=== PATIENT | female | born 1955 | race Caucasian/White ===

== ENCOUNTER → 2019-04-10 13:39 | Outpatient (CLI) | payer MEDICARE, OTHER, SELFPAY ==
--- NOTE | ~2019-04-10 | MM_ITS ---
EXAMINATION: MM screening michael BI w brandy HISTORY: Screening mammogram TECHNIQUE: Craniocaudal and mediolateral oblique 3-D tomosynthesis images were obtained and synthetic 2-D images were generated. CAD analysis was submitted and interpreted. COMPARISON: 04/01/2018 bilateral digital screening mammogram To diagnostic left digital mammogram and limited left breast ultrasound To, 02/28/2016, 02/22/2015 bilateral digital screening mammogram examinations BREAST PARENCHYMAL COMPOSITION: The breasts are heterogeneously dense, which may obscure small masses . FINDINGS: There is no evidence of suspicious mass, calcification, or architectural distortion to sugg est malignancy in either breast. There has been no suspicious interval change. IMPRESSION: 1. No mammographic evidence of malignancy. 2. Recommend routine screening mammography in one year. BI-RADS Category 1: Negative Reviewed, dictated and finalized at location A. OM LOADER
== END ==
PROVIDERS: Visit Provider Nurse Practitioner Obstetrics & Gynecology
DX: Z12.31 Encounter for screening mammogram for malignant neoplasm of breast (principal)
CPT/HCPCS: 77063; 77067

== ENCOUNTER → 2019-04-18 12:59 | Outpatient (CLI) | payer MEDICARE, OTHER, SELFPAY ==
--- NOTE | ~2019-04-18 | DEXA_ITS ---
Bone Density Report Name: Yvonne Kumar Age: 64 Sex: Female Ethnicity: White Date of : 1955 Indication: postmenopausal; screening for osteoporosis; Referring Provider: Prabhakar, Neida Velázquez Study: Bone densitometry was performed. Exam Date: April 18, 2019 Accession number: [id number] Bone Density: Region BMD T-score Z-score Classification AP Spine (L1-L4) 1.001 -0.4 1.3 Normal Femoral Neck (Left) 0.755 -0.8 0.7 Normal Total Hip (Left) 0.925 -0.1 1.1 Normal Femoral Neck (Right) 0.734 -1.0 0.5 Normal Total Hip (Right) 0.932 -0.1 1.1 Normal Total Hip Mean 0.929 -0.1 1.1 Normal World Health Organization criteria for BMD impression classify patients as: Normal (T-score at or above -1.0), Osteopenia (T-score between -1.0 and -2.5), or Osteoporosis (T-score at or below -2.5). 10-year Fracture Risk: FRAX not reported because: All T-scores for Spine Total, Hip Total, Femoral Neck at or above -1.0 Previous Exams: Region Exam Age BMD T-score BMD Change BMD Change Date g/cm2 vs Baseline vs Previous AP Spine(L1-L4) 04/18/2019 64 1.001 -0.4 0.003 0.003 03/12/2017 62 0.997 -0.5 Total Hip(Left) 04/18/2019 64 0.925 -0.1 0.008 0.008 03/12/2017 62 0.917 -0.2 Total Hip(Right) 04/18/2019 64 0.932 -0.1 0.050* 0.050* 03/12/2017 62 0.882 -0.5 *Denotes significance at 95% confidence level, LSC for AP Spine = 0.022 g/cm2, LSC for Total Hip = 0.027 g/cm2 Clinical Information Provided by Patient: Patient maximum height was 65.3 Menopause Age: 54 Drinks caffeinated beverages Onset of menses at age 15 Number of children 1 Impression: The patient has normal bone mass. No significant bone loss was observed. Discussion: BONE DENSITY IS ABOVE THE MINIMUM DESIRABLE LEVEL AT ALL SKELETAL SITES TESTED. This patient?s bone mineral density is above the minimum desirable level (T-score -1.0 or better) at all sites measured. The patient should follow a healthful lifestyle (good nutrition with adequate calcium and vitamin D, and appropriate weight-bearing exercise). Follow-Up: Consider repeating this study in 5 years or sooner if there is some new clinical indication. Reported by: [facility] on 04/18/2019 1:14:00 PM. Reviewed, dictated and finalized at location ANichol AGUIRRE
== END ==
PROVIDERS: PCP Internal Medicine; Visit Provider Nurse Practitioner Obstetrics & Gynecology
DX: Z78.0 Asymptomatic menopausal state (principal)
CPT/HCPCS: 77080

== ENCOUNTER 2019-12-08 11:56 | Outpatient (CLI) | payer MEDICARE, OTHER, SELFPAY ==
--- NOTE | 2019-12-08 12:52 | ECG_ITS ---
Measurements Intervals [place] Rate: 80 P: 63 RI: 205 QRS: 26 QRSD: 95 T: 42 QT: 354 QTc: 410 Interpretive Statements SINUS RHYTHM DELAYED PRECORDIAL R/S TRANSITION BASELINE ARTIFACT- I, II, III, AVR, AVL, AVF, V6 BORDERLINE ECG Electronically Signed On 12-08-2019 13:44:21 CDT by Constantino Forbes D.O.
[2019-12-08 13:18] LABS: Basophils Percent Auto 0.3 % (0.2-1.2); Eosinophils Absolute Auto 0.2 K/mm3 (0-0.3); Eosinophils Percent Auto 2.9 % (0-4.4); Hematocrit 47.5 % (37.0-47.0); Hemoglobin 15.6 g/dL (12.0-15.0); Immature Granulocyte Absolute 0.02 K/mm3 (0.00-0.031); Immature Granulocyte Percent A 0.3 % (0-0.5); Lymphocytes Absolute Auto 1.86 K/mm3 (0.9-3.2); Lymphocytes Percent Auto 26.6 % (18.3-44.2); Mean Corpuscular HGB Conc 32.8 g/dl (32-36); Mean Corpuscular Hemoglobin 30.2 pg (26-34); Mean Corpuscular Volume 92.1 fl (80-100); Mean Platelet Volume 8.8 fl (7.4-10.4); Monocytes Absolute Auto 0.6 K/mm3 (0.1-0.6); Monocytes Percent Auto 8.4 % (2.6-8.5); Neutrophils Absolute Auto 4.3 K/mm3 (1.3-6.7); Neutrophils Percent Auto 61.5 % (45.5-73.1); Platelet Count Result 307 k/mm3 (150-375); Red Blood Count 5.16 M/mm3 (4.2-5.4); Red Cell Distribution Width 12.8 % (11.5-14.5)
[2019-12-08 13:21] LABS: Add Urine Microscopic? YES; Appearance Urine Clear (Clear); Bacteria Urine Trace /hpf; Bilirubin Urine Negative (Negative); Blood Urine Negative (Negative); Color Urine Yellow (Yellow); Glucose Urine UA Negative (Negative); Ketones Urine Negative (Negative); Leukocyte Esterase Ur Negative LEU/UL (Negative); Mucus Urine Rare /lpf; Nitrate Urine Negative (Negative); Protein Urine Negative (Negative); RBC Urine 0-2 /hpf (0-2); Specific Grav Ur 1.013 (1.001-1.035); Squamous Epithelial Cell Urine Many /hpf (Few); Urobilinogen Urine Negative mg/dL (<2.0); WBC Urine 0-3 /hpf
[2019-12-08 13:27] LABS: Hemoglobin A1C 5.1 % (<5.7)
[2019-12-08 13:28] LABS: Partial Thromboplastin Time 31.5 SECONDS (22.3-36.8); Urine Cotinine NEGATIVE
[2019-12-08 13:30] LABS: Albumin Level 4.1 g/dL (3.5-5.1); Anion Gap 6 mmol/L (8-16); Blood Urea Nitrogen 11 mg/dL (7-17); Calcium 9.5 mg/dL (8.4-10.2); Carbon Dioxide 32 mmol/L (22-30); Chloride 103 mmol/L (98-107); Estimated Glomerular Filt Rate > 60; Glucose 93 mg/dL (65-105); Potassium 3.8 mmol/L (3.4-5.0); Sodium 141 mmol/L (137-145)
== END 2019-12-08 11:57 | disposition home or self-care (01) ==
LOC: ANHSURGERY 12:01
PROVIDERS: PCP Internal Medicine; Visit Provider Orthopaedic Surgery
DX: M17.12 Unilateral primary osteoarthritis, left knee (principal); Z01.818 Encounter for other preprocedural examination; R94.31 Abnormal electrocardiogram [ECG] [EKG]
CPT/HCPCS: 80048; 80307; 81001; 82040; 83036; 85025; 85610; 85730; 86850; 86900; 86901; 87081; 93005

== ENCOUNTER 2019-12-16 01:02 | Outpatient (CLI) | payer MEDICARE, OTHER, SELFPAY ==
[2019-12-16 18:04] LABS: SARS-CoV-2 RNA PCR Negative
== END 2019-12-16 01:03 | disposition home or self-care (01) ==
LOC: ANHCOVIDDT 01:02
PROVIDERS: PCP Internal Medicine; Visit Provider Orthopaedic Surgery
DX: Z01.812 Encounter for preprocedural laboratory examination (principal); Z11.59 Encounter for screening for other viral diseases
CPT/HCPCS: 87635; C9803; U0003

== ENCOUNTER 2019-12-20 17:37 | Observation (INO) | payer MEDICARE, OTHER, SELFPAY ==
[2019-12-08 12:18] VITALS: BP 143/79; PULSE 75; RESP 16; TEMP 36.2; O2SAT 97; BMI 31.8
[2019-12-19] VITALS (13 sets, daily range): BP systolic 97–149; BP diastolic 48–79; PULSE 84–109; RESP 12–20; TEMP 36.3–36.7; O2SAT 93–100; BMI 31.5
--- NOTE | 2019-12-19 10:16 | WPDANESEPPF ---
Anes - Initial Pre Proc Eval Procedure: Operation Date: 12/19/19 12:00 Proposed Procedures p Left Total Knee Arthroplasty - Jah Fox MD Date/Time: 12/19/19 10:16 Surgeon: Jah Fox MD Pre Op Diagnosis: left knee DJD Patient Data Age: 64 Gender: F Height: 5 ft 6 in Weight: 88 kg Last Vital Signs Temp 36.2 C L 12/08/19 12:18 Pulse 75 12/08/19 12:18 Resp 16 12/08/19 12:18 BP 143/79 H 12/08/19 12:18 Pulse Ox 97 12/08/19 12:18 Allergies Allergy/AdvReac Type Severity Reaction Status Date / Time Penicillins Allergy Mild Rash Verified 12/19/19 10:10 Home Medications Medication Instructions Recorded Confirmed Type multivitamin 1 tablet PO DAILY 02/17/19 12/19/19 History fluticasone propionate 50 2 spray NASAL DAILY PRN #47.4 ml 06/18/19 12/19/19 Rx mcg/actuation nasal spray,suspension coenzyme Q10 75 mg capsule 75 mg PO QPM 11/07/19 12/19/19 History unsdcwz-cqjhsdtnvqhmq-hjhblygy 2 tablet PO Q4-6H PRN 12/08/19 12/19/19 History [Excedrin Migraine] citalopram 10 mg PO QAM 12/08/19 12/19/19 History cyanocobalamin (vitamin B-12) 1,000 mcg PO DAILY 12/08/19 12/19/19 History [Vitamin B-12] diclofenac sodium [Voltaren 2 g TOPICAL QID PRN 12/08/19 12/19/19 History Arthritis Pain] ezetimibe-simvastatin 1 tablet PO QPM 12/08/19 12/19/19 History Patient hx anesthesia problems: other (slow to awaken) Family hx anesthesia problems: none PMFSH Past Medical History Medical History Arthritis Depression Dizziness Headache Pure hypercholesterolemia Seasonal allergies Vision abnormalities Surgical History Surgical History History of right knee joint replacement Family History Family History Sibling Family history of scoliosis Father Patient's father is Other Arthritis Heart disease Kidney disease Social History Social History Smoking status: Never smoker Second hand tobacco smoke exposure: No Alcohol intake: never Substance use: never Living arrangements: alone Spiritual care concerns: No Anes - Eval Final PreProcedure Day of Procedure 12/19/19 10:16 Patient weight: obese Heart: regular rate and rhythm Lungs: clear to auscultation Airway: Mallampati scale class II Neurological: alert and oriented Last oral intake: >/= 8 hours ASA classification: III Emergent: no Anesthetic plan: proceed Anesthesia type and monitoring: general LMA and standard monitoring Informed Consent: The patient's anesthetic plan and its attendant risks and benefits were discussed with the patient/family/POA. Questions were solicited and answers provided to the satisfaction of the patient/family/POA.
[2019-12-19] MEDS: LACTATED RINGERS 1,000 ML 30 ML IV CONT ×2 (10:25→14:33)
[2019-12-19] MEDS: KETOROLAC 15 MG/ML VIAL (*BKC) IV PUSH (10:25)
[2019-12-19] MEDS: ACETAMINOPHEN 500 MG TABLET 1000 MG PO (10:30)
[2019-12-19] MEDS: TRANEXAMIC ACID 1,000MG/ISO100 1,000 MG/100 ML BAG 200 MG IVPB (10:30)
--- NOTE | 2019-12-19 11:39 | WPDHPUPDATE1 ---
History and Physical Update Update Date/Time: 12/19/19 11:39 History and Physical has been reviewed, including an updated exam of the patient. There are NO changes in the patient's condition. Risks, benefits, and alternatives have been discussed and questions answered. Patient agrees to proceed with procedure.
--- NOTE | 2019-12-19 11:47 | WPDANESPNB ---
Anes - Peripheral Nerve Block Date/Time: 12/19/19 11:47 I have discussed with the patient/family/POA the placement of a peripheral nerve block for post-operative pain management, including associated risks, benefits, complications, and side effects. Alternative methods of post-operative analgesia were detailed. Questions were solicited and answers provided to the satisfaction of the patient/family/POA. Time-Out: A pre-procedural Time-Out was completed immediately before starting the procedure and confirmed: Patient Identification, Site, Procedure, Patient Position and the Availability of Requisite Equipment. Clinical Indications: Acute post-operative pain management requested by the operative surgeon. Nerve Block Insertion Note Anes-nerve block: femoral left Patient position: supine Skin prep: chlorhexidine Needle: 22 gauge, stimulating, insulated echogenic needle. Needle length: 50 mm Technique: nerve stimulation lost at (mA) (.30) Technique comment: mid 2mg fent 100mcg Injectate: dexamethasone (mg) (4) and bupivacaine 0.25% with epi 5 mcg/ml (30ml) Observations: tolerated well Complications: none Procedure start time:: 1140 Procedure end time:: 1145
[2019-12-19] MEDS: ceFAZolin 2 GM/D5W 50 ML 2 GM/50 ML BAG IVPB ×2 (11:50→20:32)
[2019-12-19] MEDS: GENTAMICIN BONE CEMENT REFOBACIN 1 EACH TOPICAL (13:04)
--- NOTE | 2019-12-19 14:46 | PM.PROC ---
Procedure Note - Detailed Date of procedure: 12/19/19 Pre-op diagnosis: left knee DJD Post-op diagnosis: same Procedure performed: L TKA Description of procedure: THE LEFT KNEE WAS PREPPED AND DRAPED IN THE STERILE FASHION. A MIDLINE SKIN INCISION WAS MADE. A MEDIAL PARAPATELLAR ARTHROTOMY WAS MADE. THE PATELLA WAS EVERTED. THERE WAS TRICOMPARTMENT DJD. THERE WAS MINIMAL PATELLA DJD. AN INTRAMEDULLARY JAMAL WAS PLACED IN THE FEMUR. A DISTAL FEMORAL CUT WAS MADE IN 5 DEGREES OF VALGUS REMOVING APPROXIMATELY 9 MM OF BONE FROM THE DISTAL FEMUR. THE FEMUR WAS SIZED TO 70. A 62.5 FEMORAL CUTTING BLOCK WAS PLACED IN 3 DEGREES OF EXTERNAL ROTATION AND IN ALIGNMENT WITH LOS'S LINE AND THE TRANSEPICONDYLAR AXIS. ANTERIOR POSTERIOR AND CHAMFER CUTS WERE MADE. THE CUTS WERE EXCELLENT. NEXT AN INTRAMEDULLARY CUTTING GUIDE WAS PLACED IN THE TIBIA. A TRANS TIBIAL CUT WAS MADE ALONG THE LONG AXIS OF THE TIBIA. APPROXIMATELY 10 MM OF BONE WAS REMOVED FROM THE HIGH SIDE OF THE TIBIA. THE TIBIA WAS THEN PLANED TO A SMOOTH SURFACE. POSTERIOR FEMORAL OSTEOPHYTES WERE REMOVED FROM THE FEMORAL CONDYLES. A LARGE OSTEOPHYTE WAS REMOVED FROM POSTERIOR MEDIAL COMPARTMENT AND THERE WS SIGNIFICANT REDUNDANCY. A 71 TIBIAL TRIAL WAS PLACED IN ALIGNMENT WITH THE 1/3 MEDIAL ASPECT OF THE TIBIAL TUBERCLE. THEN A 62.5 FEMORAL TRIAL COMPONENT WAS PLACED. BOTH HAD EXCELLENT FITS. VARIOUS POLY TRIALS WERE USED TO STABILIZE THE KNEE JOINT AND EVENTUALLY AN 18 MM A.S. POLYETHYLENE TRIAL COMPONENT WAS PLACED. THE KNEE WAS TAKEN THROUGH A RANGE OF MOTION. THE KNEE CAME OUT TO FULL EXTENSION. THERE WAS NO ABNORMAL TILT TO THE PATELLA. THERE WAS GOOD A/P AND VARUS/VALGUS STABILITY. THERE WAS NO EXCESSIVE ROLL BACK WITH FLEXION. THE TRIAL COMPONENTS WERE REMOVED. THEN A 62.5 FEMORAL COMPONENT AND 71 TIBIAL COMPONENT WITH A 118 A.S. POLYETHYLENE COMPONENT WERE CEMENTED INTO PLACE. ONCE THE CEMENT WAS HARD THE KNEE WAS TAKEN THROUGH A ROM AGAIN AND FOUND TO BE STABLE WITH NO PATELLA TILT NO EXCESSIVE ROLL BACK WITH FLEXION AND GOOD STABILITY WITH COMPLETE AND FULL EXTENSION. THE KNEE WAS IRRIGATED WITH STERILE BETADINE AND WATER FOR ABOUT 3 MINUTES. THE BLEEDERS WERE CAUTERIZED. THE ARTHROTOMY WAS REPAIRED WITH NUMBER 1 VICRYL. THE SUB CUTANEOUS LAYER WITH 2-0 VICRYL AND THE SKIN WITH RENITA. THE WOUND WAS WASHED AND A STERILE DRESSING WAS APPLIED. PATIENT WAS EXTUBATED. Anesthesia: GETA Surgeon: Jah Fox MD Estimated blood loss (mL): 100 Complications: No immediate complications Condition: stable Disposition: PACU
[2019-12-19] MEDS: fentaNYL CITRATE INJ (*CRX) 100 MCG/2 ML VIAL 25 MCG IV PUSH ×4 (15:11→15:40)
--- NOTE | 2019-12-19 15:42 | SUR.PHASEI ---
[id number] sbar faxed floor notified
--- NOTE | 2019-12-19 16:10 | ADMGEN ---
This patient, Yvonne Kumar, was admitted to Medical Room 247-. Patient/family oriented to hospital policies and general routines including ID bracelet, bed and alarms, visiting hours, pain management, procedures, bathroom and other care routines, personal items, smoking policy, room service/diet, and visiting hours. Information on how to activate the Rapid Response Team has been discussed. Patient/Family are encouraged to report perceived risks to care and to ask questions if they do not understand what they are told or what they should do.
[2019-12-19] MEDS: oxyCODONE HCL (*CRX) 5 MG TAB IR 10 MG PO ×2 (17:00→20:57)
[2019-12-19] MEDS: DOCUSATE SODIUM 100 MG CAPSULE PO (17:02)
[2019-12-19] MEDS: CELECOXIB 200 MG CAPSULE PO (17:29)
[2019-12-19] MEDS: SIMVASTATIN 10 MG TABLET PO (17:30)
[2019-12-19] MEDS: EZETIMIBE 10 MG TABLET PO (17:30)
[2019-12-20] VITALS (8 sets, daily range): BP systolic 102–144; BP diastolic 49–69; PULSE 82–100; RESP 16–18; TEMP 36.4–37.2; O2SAT 96–100
--- NOTE | ~2019-12-20 | XR_ITS ---
EXAMINATION: XR knee LT 2V DATE: 12/19/2019 14:45 INDICATION: Total left knee arthroplasty. Postop. TECHNIQUE: 2 views of left knee were obtained. COMPARISON: Left knee radiographs 11/06/2019 FINDINGS: There is a total left knee arthroplasty without patellar resurfacing in near-anatomic align ment. No fracture. There is gas in the knee joint and soft tissues, consistent with recent surgery. A nterior skin karissa are noted. IMPRESSION: 1. Total left knee arthroplasty in near-anatomic alignment. Reviewed, dictated and finalized at location B. EROOM ATTENDANT
[2019-12-20] MEDS: oxyCODONE HCL (*CRX) 5 MG TAB IR 10 MG PO ×4 (03:41→23:00)
[2019-12-20] MEDS: ONDANSETRON INJ 4 MG/2 ML VIAL IV PUSH ×2 (03:41→10:30)
[2019-12-20] MEDS: ceFAZolin 2 GM/D5W 50 ML 2 GM/50 ML BAG IVPB ×2 (03:45→11:17)
[2019-12-20 05:28] LABS: Basophils Percent Auto 0.1 % (0.2-1.2); Hematocrit 42.5 % (37.0-47.0); Hemoglobin 13.8 g/dL (12.0-15.0); Immature Granulocyte Absolute 0.08 K/mm3 (0.00-0.031); Immature Granulocyte Percent A 0.5 % (0-0.5); Lymphocytes Absolute Auto 0.99 K/mm3 (0.9-3.2); Lymphocytes Percent Auto 6.2 % (18.3-44.2); Mean Corpuscular HGB Conc 32.5 g/dl (32-36); Mean Corpuscular Hemoglobin 29.9 pg (26-34); Mean Corpuscular Volume 92.2 fl (80-100); Mean Platelet Volume 9.1 fl (7.4-10.4); Monocytes Absolute Auto 1.5 K/mm3 (0.1-0.6); Monocytes Percent Auto 9.1 % (2.6-8.5); Neutrophils Absolute Auto 13.5 K/mm3 (1.3-6.7); Neutrophils Percent Auto 84.1 % (45.5-73.1); Platelet Count Result 306 k/mm3 (150-375); Red Blood Count 4.61 M/mm3 (4.2-5.4); Red Cell Distribution Width 12.8 % (11.5-14.5)
[2019-12-20 05:40] LABS: Anion Gap 5 mmol/L (8-16); Blood Urea Nitrogen 13 mg/dL (7-17); Calcium 8.6 mg/dL (8.4-10.2); Carbon Dioxide 30 mmol/L (22-30); Chloride 105 mmol/L (98-107); Estimated CRCL calculation 89 ml/min; Estimated Glomerular Filt Rate > 60; Glucose 126 mg/dL (65-105); Potassium 4.1 mmol/L (3.4-5.0); Sodium 140 mmol/L (137-145)
--- NOTE | 2019-12-20 07:49 | WPDANESPN ---
Anes - Prog Note Post-Op Date/Time: 12/20/19 07:49 Cardiovascular status: normal Respiratory status: normal Airway patency: baseline Mental status: baseline Post-Op hydration status: normal Vital Signs: Last Vital Signs Temp 37.2 C 12/20/19 05:42 Pulse 89 12/20/19 05:42 Resp 18 12/20/19 05:42 BP 144/69 H 12/20/19 05:42 Pulse Ox 100 12/20/19 05:42 Pain Score (VAS): 3 I/O: Intake & Output 12/19/19 12/19/19 12/20/19 15:59 23:59 07:59 Intake Total 550 440 290 Output Total 250 Balance 550 190 290 Laboratory Tests 12/20/19 05:04 12/20/19 05:04 12/20/19 12/20/19 05:04 05:04 WBC 16.0 H RBC 4.61 Hgb 13.8 Hct 42.5 MCV 92.2 MCH 29.9 MCHC 32.5 RDW 12.8 Plt Count 306 MPV 9.1 Immature Gran % (Auto) 0.5 Neut % (Auto) 84.1 H Lymph % (Auto) 6.2 L [place] % (Auto) 9.1 H Eos % (Auto) 0.0 Baso % (Auto) 0.1 L Lymph # (Auto) 0.99 [place] # (Auto) 1.5 H Eos # (Auto) 0.0 Baso # (Auto) 0.0 Abs Immat Gran (auto) 0.08 H Absolute Neuts (auto) 13.5 H Absolute Nucleated RBC 0.0 Nucleated RBC % 0.0 Sodium 140 Potassium 4.1 Chloride 105 Carbon Dioxide 30 Anion Gap 5 L BUN 13 Creatinine 0.60 L Estim Creat Clear Calc 89 Estimated GFR > 60 Glucose 126 H Calcium 8.6 Post-procedural complaints: none Patient Feedback: Patient satisfied with anesthetic care.
[2019-12-20] MEDS: DOCUSATE SODIUM 100 MG CAPSULE PO ×2 (09:09→16:19)
[2019-12-20] MEDS: CITALOPRAM HYDROBROMIDE 10 MG TABLET PO (09:09)
[2019-12-20] MEDS: ASPIRIN 325 MG ENTERIC TABLET 650 MG PO (09:09)
[2019-12-20] MEDS: CELECOXIB 200 MG CAPSULE PO ×2 (09:09→16:19)
--- NOTE | 2019-12-20 12:08 | PCOTNOTE ---
On 12/20/19, the student, Martha Griggs, provided care and completed [facility] documentation on this patient. I have reviewed the student's documentation and agree with the findings.
--- NOTE | 2019-12-20 16:24 | PM.PNORT ---
Progress Note: A&P Additional Plan POD 1 DOING WELL AND GETTING UP AND WALKING. BLOCK IS STILL ACTIVE. ANTICIPATE DC IN AM Subjective Subjective Date/Time Seen: 12/20/19 16:24 Post Op day: 1 Principal diagnosis: POD 1 DOING WELL. NO CALF PAIN Exam Extrem: Other: VSS AFEBRILE DRESSING DRY NV INTACT NEG HOMANS SIGN Objective Data Vital Signs Vital Signs: Vital Signs - 24 hr 12/19/19 16:30 12/19/19 17:00 12/19/19 18:00 Temperature 36.6 C 36.6 C 36.7 C Pulse Rate 96 99 96 Respiratory Rate 16 16 16 Blood Pressure 127/66 137/68 132/65 Pulse Oximetry 95 96 97 12/19/19 21:42 12/20/19 01:42 12/20/19 05:42 Temperature 36.6 C 36.8 C 37.2 C Pulse Rate 107 H 100 89 Respiratory Rate 20 18 18 Blood Pressure 127/61 109/57 L 144/69 H Pulse Oximetry 98 96 100 12/20/19 09:09 12/20/19 09:42 12/20/19 13:42 Temperature 36.4 C 36.4 C Pulse Rate 82 87 Respiratory Rate 18 16 16 Blood Pressure 108/54 L 102/56 L Pulse Oximetry 99 99 100 Intake/Output Intake/Output: Intake & Output 12/17/19 12/18/19 12/19/19 12/20/19 23:59 23:59 23:59 23:59 Intake Total 990 770 Output Total 250 Balance 740 770 Meds/Results Medications: Active Medications Generic Name Dose Route Start Last Admin Trade Name Freq PRN Reason Stop Dose Admin Acetaminophen 1,000 mg 12/19/19 15:57 Acetaminophen 500 Mg Tablet PO Q6H PRN Pain Rated 1-3 Aspirin 650 mg 12/20/19 09:00 12/20/19 09:09 Aspirin 325 Mg Enteric Tablet PO 650 mg DAILY RITO Administration Celecoxib 200 mg 12/19/19 17:00 12/20/19 16:19 Celecoxib 200 Mg Capsule PO 200 mg BIDWM RITO Administration Citalopram Hydrobromide 10 mg 12/20/19 09:00 12/20/19 09:09 Citalopram Hydrobromide 10 Mg Tablet PO 10 mg QAM RITO Administration Diazepam 5 mg 12/19/19 15:57 Diazepam (*Crx) 5 Mg Tablet PO Q8H PRN Spasms Diphenhydramine HCl 25 mg 12/19/19 15:57 Diphenhydramine Hcl Inj 50 Mg/Ml Vial IV PUSH Q6H PRN Itching Docusate Sodium 100 mg 12/19/19 17:00 12/20/19 16:19 Docusate Sodium 100 Mg Capsule PO 100 mg BID RITO Administration Ezetimibe 10 mg 12/19/19 18:00 12/19/19 17:30 Ezetimibe 10 Mg Tablet PO 01/18/20 18:01 10 mg QPM RITO Administration Naloxone HCl 0.1 mg 12/19/19 15:57 Naloxone Hcl 0.4 Mg/Ml Vial IV PUSH Q2M PRN Opiate Reversal Ondansetron HCl 4 mg 12/19/19 15:57 12/20/19 10:30 Ondansetron Inj 4 Mg/2 Ml Vial IV PUSH 4 mg Q4H PRN Administration Nausea And Vomiting Oxycodone HCl 10 mg 12/19/19 15:57 12/20/19 16:19 Oxycodone Hcl (*Crx) 5 Mg Tab Ir PO 10 mg Q4H PRN Administration Pain Rated 7-10 Oxycodone/Acetaminophen 1 tablet 12/19/19 15:57 Oxycodone/Acetaminophen (*Crx) 5-325 Mg Tablet PO Q4H PRN Pain Rated 4-6 Simvastatin 10 mg 12/19/19 18:00 12/19/19 17:30 Simvastatin 10 Mg Tablet PO 01/18/20 18:01 10 mg QPM RITO Administration Radiology Results: ITS Impressions Knee X-Ray 12/19/19 14:48 IMPRESSION: 1. Total left knee arthroplasty in near-anatomic alignment. Labs Labs: Laboratory Results - last 24 hr 12/20/19 12/20/19 05:04 05:04 WBC 16.0 H RBC 4.61 Hgb 13.8 Hct 42.5 MCV 92.2 MCH 29.9 MCHC 32.5 RDW 12.8 Plt Count 306 MPV 9.1 Immature Gran % (Auto) 0.5 Neut % (Auto) 84.1 H Lymph % (Auto) 6.2 L [place] % (Auto) 9.1 H Eos % (Auto) 0.0 Baso % (Auto) 0.1 L Lymph # (Auto) 0.99 [place] # (Auto) 1.5 H Eos # (Auto) 0.0 Baso # (Auto) 0.0 Abs Immat Gran (auto) 0.08 H Absolute Neuts (auto) 13.5 H Absolute Nucleated RBC 0.0 Nucleated RBC % 0.0 Sodium 140 Potassium 4.1 Chloride 105 Carbon Dioxide 30 Anion Gap 5 L BUN 13 Creatinine 0.60 L Estim Creat Clear Calc 89 Estimated GFR > 60 Glucose 126 H Calcium 8.6
[2019-12-20] MEDS: EZETIMIBE 10 MG TABLET PO (17:46)
[2019-12-20] MEDS: SIMVASTATIN 10 MG TABLET PO (17:46)
[2019-12-21 02:00] VITALS: BP 120/54; PULSE 84; RESP 18; TEMP 36.4; O2SAT 99
[2019-12-21] MEDS: oxyCODONE HCL (*CRX) 5 MG TAB IR 10 MG PO ×2 (04:15→09:39)
[2019-12-21 06:00] VITALS: BP 117/52; PULSE 97; RESP 16; TEMP 36.6; O2SAT 95
--- NOTE | 2019-12-21 09:16 | PM.PNORT ---
Progress Note: A&P Assessment and Plan (1) Total knee replacement status: Qualifiers: Laterality: left Qualified Code(s): Z96.652 - Presence of left artificial knee joint Code(s): Z96.659 - Presence of unspecified artificial knee joint Status: Acute Assessment and Plan: POD #2: Left TKA Continue PT/OT. WBAT. Walker. High Fall Risk. Continue pain control. Ice. DVT prophylaxis. SCDs. Incentive spirometry. Begin bowel regimen. Dispo: Home with Home Health likely today pending progress with PT/OT. Subjective Subjective Date/Time Seen: 12/21/19 09:16 No new complaints. Feeling well. Pain well controlled. Intermittent nausea. No BM since surgery. Review of Systems Review of Systems: All systems reviewed & are unremarkable except as noted in HPI and below Constitutional: Constitutional: Denies fever(s) and Denies headache(s) ENT: Denies headache(s) Cardiovascular: Cardiovascular: Denies chest pain, Denies diaphoresis, Denies palpitations and Denies dyspnea Respiratory: Respiratory: Denies dyspnea Gastrointestinal: Gastrointestinal: Denies abdominal pain, Denies constipation, Denies nausea and Denies vomiting Genitourinary: Genitourinary: Reports nocturia and Denies dysuria Musculoskeletal: Musculoskeletal: Reports arthralgias (Left Knee ) and Reports joint swelling (Left Knee ) Neurologic: Denies headache(s) Endocrine: Endocrine: Denies palpitations Exam Const: General: comfortable and no acute distress Resp: Effort & Inspection: normal respiratory effort Cardio: Rate: regular rate Rhythm: regular rhythm GI: GI Palp: Yes Soft to palpation, No Tenderness to palpation present (GI) and No Guarding due to palpation present (GI) Skin: Wounds: wounds noted Other: Incision c/d/i. No surrounding redness/warmth. No hematoma. Mild ecchymosis. No wound dehiscence Neuro: Cognition (Neuro): normal cognition Other: NV intact aside from block. Moves toes. Sensation intact to light touch. +ankle dorsiflexion/plantarflexion. Extrem: Right upper extremity: normal to inspection, full ROM and normal capillary refill Left upper extremity: normal to inspection, full ROM and normal capillary refill Right lower extremity: normal to inspection, full ROM and knee Details: normal to inspection and normal ROM; no tenderness and no swelling Left lower extremity: normal to inspection, full ROM and knee Details: tenderness, swelling, abnormal ROM (ROM limited due to pain/consistent with recent surgery ) and other Other: Incision left TKA dressing c/d/i. No hematoma. No signs of infection. No wound dehiscence. Psych: Mental Status: mental status grossly normal Objective Data Vital Signs Vital Signs: Vital Signs - 24 hr 12/20/19 09:42 12/20/19 13:42 12/20/19 17:42 Temperature 36.4 C 36.4 C 36.6 C Pulse Rate 82 87 87 Respiratory Rate 16 16 16 Blood Pressure 108/54 L 102/56 L 107/56 L Pulse Oximetry 99 100 97 12/20/19 20:00 12/20/19 22:00 12/21/19 02:00 Temperature 37.1 C 36.4 C Pulse Rate 87 95 84 Respiratory Rate 16 18 18 Blood Pressure 120/49 L 120/54 L Pulse Oximetry 97 97 99 12/21/19 06:00 Temperature 36.6 C Pulse Rate 97 Respiratory Rate 16 Blood Pressure 117/52 L Pulse Oximetry 95 Intake/Output Intake/Output: Intake & Output 12/18/19 12/19/19 12/20/19 12/21/19 23:59 23:59 23:59 23:59 Intake Total 990 1410 390 Output Total 250 550 800 Balance 740 860 -410 Meds/Results Medications: Active Medications Generic Name Dose Route Start Last Admin Trade Name Freq PRN Reason Stop Dose Admin Acetaminophen 1,000 mg 12/19/19 15:57 Acetaminophen 500 Mg Tablet PO Q6H PRN Pain Rated 1-3 Aspirin 650 mg 12/20/19 09:00 12/20/19 09:09 Aspirin 325 Mg Enteric Tablet PO 650 mg DAILY RITO Administration Celecoxib 200 mg 12/19/19 17:00 12/20/19 16:19 Celecoxib 200 Mg Capsule PO 200 mg BIDWM RITO Administration Citalopram
[2019-12-21] MEDS: ASPIRIN 325 MG ENTERIC TABLET 650 MG PO (09:39)
[2019-12-21] MEDS: DOCUSATE SODIUM 100 MG CAPSULE PO (09:39)
[2019-12-21] MEDS: CELECOXIB 200 MG CAPSULE PO (09:39)
[2019-12-21] MEDS: CITALOPRAM HYDROBROMIDE 10 MG TABLET PO (09:39)
[2019-12-21] MEDS: polyethylene glycoL 3350 17 GM POWD.PACK PO (09:40)
[2019-12-21 10:00] VITALS: BP 133/64; PULSE 93; RESP 16; TEMP 36.7; O2SAT 96
[2019-12-21] MEDS: oxyCODONE/ACETAMINOPHEN (*CRX) 5-325 MG TABLET 1 TABLET PO (13:25)
--- NOTE | 2019-12-29 15:40 | PM.DS ---
DS: Admitting Diagnosis Admitting Diagnosis Admitting Diagnosis: left knee DJD DS: Discharge Diagnosis Discharge Diagnosis (1) Total knee replacement status: Qualifiers: Laterality: left Qualified Code(s): Z96.652 - Presence of left artificial knee joint Code(s): Z96.659 - Presence of unspecified artificial knee joint Status: Acute Assessment and Plan: POD #2: Left TKA Continue PT/OT. WBAT. Walker. High Fall Risk. Continue pain control. Ice. DVT prophylaxis. SCDs. Incentive spirometry. Begin bowel regimen. Dispo: Home with Home Health likely today pending progress with PT/OT. DS: Summary Hospital Course Reason for hospitalization: Left total knee replacement Hospital Course: 64-year-old female admitted status post left total knee replacement for postoperative medical management, formal physical therapy and occupational therapy and pain control. Patient progressed well with PT and OT. She is deemed safe to go home with home health. Dressing change prior to discharge. She was sent with 1 additional dressing to be changed in 5 days with home health RN. Patient will follow up as an outpatient. Outpatient appointment scheduled. Status at Discharge Cognitive/behavioral status at discharge: stable Functional status at discharge: uses cane/walker Overall status at discharge: patient is progressing back to baseline Time Spent with Patient Time attestation: Total time spent providing and/or coordinating discharge services: Exam Const: General: comfortable and no acute distress Resp: Effort & Inspection: normal respiratory effort Cardio: Rate: regular rate Rhythm: regular rhythm GI: GI Palp: Yes Soft to palpation, No Tenderness to palpation present (GI) and No Guarding due to palpation present (GI) Skin: Wounds: wounds noted Other: Incision c/d/i. No surrounding redness/warmth. No hematoma. Mild ecchymosis. No wound dehiscence Neuro: Cognition (Neuro): normal cognition Other: NV intact aside from block. Moves toes. Sensation intact to light touch. +ankle dorsiflexion/plantarflexion. Extrem: Right upper extremity: normal to inspection, full ROM and normal capillary refill Left upper extremity: normal to inspection, full ROM and normal capillary refill Right lower extremity: normal to inspection, full ROM and knee Details: normal to inspection and normal ROM; no tenderness and no swelling Left lower extremity: normal to inspection, full ROM and knee Details: tenderness, swelling, abnormal ROM (ROM limited due to pain/consistent with recent surgery ) and other Other: Incision left TKA dressing c/d/i. No hematoma. No signs of infection. No wound dehiscence. Psych: Mental Status: mental status grossly normal Discharge Plan Discharge Attending physician on discharge: Jah Fox Consulting providers: Priscilla Hannah ; Lester Montes V. Discharging Clinician: Priscilla Hannah Anticipated Discharge Date/Time: 12/21/19 15:00 Patient Disposition: Home Health Service Activity: may shower, no driving and follow weight bearing status Diet: as tolerated Wound Care Instructions: follow printed instructions Discharge Instructions: Post Op Total Knee Replacement Instructions Dr. Jah Fox ?Your dressing will be changed prior to your discharge. You will be sent home with one additional dressing to be changed in 5 days by the home health RN. Your karissa will be removed on the 14th day after surgery and steri-strips will be placed. ?You may shower with your dressing but do not submerge in a bath tub. ?Do not drive or operate machinery until you are released by Dr. Fox. ?Do not walk without a walker for any reason until you are released by Dr. Fox. ?Continue to use your ice machine. Please use a towel or pillow case to protect your skin before applying your ice machine. ?Do NOT place a pillow under your knee. You may use a pillow from the calf down if needed.
== END 2019-12-21 13:52 | disposition home health service (06) ==
LOC: ANHSURGERY 17:42 → ANH2MED 17:42
PROVIDERS: Admitting Provider Orthopaedic Surgery; PCP Internal Medicine; Visit Provider Orthopaedic Surgery
PROC: (CPT 27447; principal; 2019-12-19 12:00)
DX: M17.12 Unilateral primary osteoarthritis, left knee (principal); G89.18 Other acute postprocedural pain; Z96.651 Presence of right artificial knee joint
CPT/HCPCS: 27447; 64447; 36415; 73560; 80048; 85025; 97110; 97116; 97161; 97165; 97530; 97535; A9270; C1713; C1776; G0378; J0171; J0690; J1100; J1885; J2250; J2270; J2405; J2704; J2795; J3010; J7120

== ENCOUNTER → 2020-06-18 11:08 | Outpatient (CLI) | payer MEDICARE, OTHER, SELFPAY ==
--- NOTE | ~2020-06-18 | MM_ITS ---
EXAMINATION: MM screening [facility] BI w brandy HISTORY: Screening mammogram TECHNIQUE: Craniocaudal and mediolateral oblique 3-D tomosynthesis images were obtained and synthetic 2-D images were generated. CAD analysis was submitted and interpreted. COMPARISON: 04/10/2019, 04/01/2018, 03/22/2017, 03/12/2017, 02/28/2016 BREAST PARENCHYMAL COMPOSITION: The breasts are heterogeneously dense, which may obscure small masses . FINDINGS: There is no evidence of suspicious mass, calcification, or architectural distortion to sugg est malignancy in either breast. There has been no suspicious interval change. IMPRESSION: 1. No mammographic evidence of malignancy. 2. Recommend routine screening mammography in one year. BI-RADS Category 1: Negative Reviewed, dictated and finalized at location A.
== END ==
PROVIDERS: PCP Internal Medicine; Visit Provider Internal Medicine
DX: Z12.31 Encounter for screening mammogram for malignant neoplasm of breast (principal)
CPT/HCPCS: 77063; 77067

== ENCOUNTER → 2021-08-22 10:37 | Outpatient (CLI) | payer MEDICARE, SELFPAY ==
--- NOTE | ~2021-08-22 | MM_ITS ---
EXAMINATION: MM screening [facility] BI w brandy HISTORY: Screening mammogram TECHNIQUE: Craniocaudal and mediolateral oblique 3-D tomosynthesis images were obtained and synthetic 2-D images were generated. CAD analysis was submitted and interpreted. COMPARISON: 06/18/2020, 04/10/2019, 04/01/2018 BREAST PARENCHYMAL COMPOSITION: The breasts are heterogeneously dense, which may obscure small masses . FINDINGS: There is no suspicious mass, calcification, or architectural distortion to suggest malignan cy in either breast. There has been no suspicious interval change. IMPRESSION: 1. No mammographic evidence of malignancy. 2. Recommend routine screening mammography in one year. BI-RADS Category 1: Negative Reviewed, dictated and finalized at location A.
== END ==
PROVIDERS: PCP Internal Medicine; Visit Provider Nurse Practitioner Obstetrics & Gynecology
DX: Z12.31 Encounter for screening mammogram for malignant neoplasm of breast (principal)
CPT/HCPCS: 77063; 77067

== ENCOUNTER → 2021-10-16 12:05 | Outpatient (CLI) | payer MEDICARE, SELFPAY ==
--- NOTE | ~2021-10-16 | DEXA_ITS ---
Bone Density Report Name: HANG LORA Age: 66 Sex: Female Ethnicity: White Date of : 1955 Indication: postmenopausal; screening for osteoporosis; height loss; Referring Provider: Prabhakar, Neida Velázquez Study: Bone densitometry was performed. Exam Date: October 16, 2021 Accession number: [id number] Bone Density: Region BMD T-score Z-score Classification AP Spine (L1-L4) 0.980 -0.6 1.3 Normal Femoral Neck (Left) 0.779 -0.6 1.0 Normal Total Hip (Left) 0.953 0.1 1.5 Normal Femoral Neck (Right) 0.772 -0.7 1.0 Normal Total Hip (Right) 0.937 0.0 1.3 Normal Total Hip Mean 0.945 0.1 1.4 Normal World Health Organization criteria for BMD impression classify patients as: Normal (T-score at or above -1.0), Osteopenia (T-score between -1.0 and -2.5), or Osteoporosis (T-score at or below -2.5). 10-year Fracture Risk: FRAX not reported because: All T-scores for Spine Total, Hip Total, Femoral Neck at or above -1.0 Previous Exams: Region Exam Age BMD T-score BMD Change BMD Change Date g/cm2 vs Baseline vs Previous AP Spine(L1-L4) 10/16/2021 66 0.980 -0.6 -0.017 -0.020 04/18/2019 64 1.001 -0.4 0.003 0.003 03/12/2017 62 0.997 -0.5 Total Hip(Left) 10/16/2021 66 0.953 0.1 0.036 0.028 04/18/2019 64 0.925 -0.1 0.008 0.008 03/12/2017 62 0.917 -0.2 Total Hip(Right) 10/16/2021 66 0.937 0.0 0.055 0.005 04/18/2019 64 0.932 -0.1 0.050* 0.050* 03/12/2017 62 0.882 -0.5 *Denotes significance at 95% confidence level, LSC for AP Spine = 0.022 g/cm2, LSC for Total Hip = 0.027 g/cm2 Clinical Information Provided by Patient: Patient maximum height was 66.5 Menopause Age: 54 No regular weight bearing exercise Drinks caffeinated beverages Onset of menses at age 15 Number of children 1 Impression: The patient has normal bone mass. No significant bone loss was observed. Discussion: BONE DENSITY IS ABOVE THE MINIMUM DESIRABLE LEVEL AT ALL SKELETAL SITES TESTED. This patient?s bone mineral density is above the minimum desirable level (T-score -1.0 or better) at all sites measured. The patient should follow a healthful lifestyle (good nutrition with adequate calcium and vitamin D, and appropriate weight-bearing exercise). Follow-Up: Consider repeating this study in 5 years or sooner if there is some new c
== END ==
PROVIDERS: PCP Internal Medicine; Visit Provider Nurse Practitioner Obstetrics & Gynecology
DX: Z78.0 Asymptomatic menopausal state (principal)
CPT/HCPCS: 77080

== ENCOUNTER → 2022-08-24 10:05 | Outpatient (CLI) | payer MEDICARE, OTHER, SELFPAY ==
--- NOTE | ~2022-08-24 | MM_ITS ---
EXAMINATION: MM screening [facility]y HISTORY: Screening TECHNIQUE: Craniocaudal and mediolateral oblique 3-D tomosynthesis images were obtained and synthetic 2-D images were generated. CAD analysis was submitted and interpreted. COMPARISON: Comparison to multiple prior studies sequentially, with oldest reviewed study dated 03/2017. BREAST PARENCHYMAL COMPOSITION: The breasts are heterogeneously dense, which may obscure small masses FINDINGS: Bilateral breast asymmetries are stable. There is no evidence of suspicious mass, calcifica tion, or architectural distortion to suggest malignancy in either breast. There has been no suspiciou s interval change. IMPRESSION: 1. No mammographic evidence of malignancy. 2. Recommend routine screening mammography in one year. BI-RADS Category 2: Benign finding(s). Reviewed, dictated and finalized at location A.
== END ==
PROVIDERS: PCP Internal Medicine; Visit Provider Internal Medicine
DX: Z12.31 Encounter for screening mammogram for malignant neoplasm of breast (principal)
CPT/HCPCS: 77063; 77067

== ENCOUNTER 2023-09-23 11:14 | Outpatient (CLI) | payer MEDICARE, OTHER, SELFPAY ==
--- NOTE | ~2023-09-23 | MM_ITS ---
EXAMINATION: MM screening [facility] w [facility] HISTORY: Screening TECHNIQUE: Craniocaudal and mediolateral oblique 3-D tomosynthesis images were obtained and synthetic 2-D images were generated. CAD analysis was submitted and interpreted. COMPARISON: Comparison to multiple prior studies sequentially, with oldest reviewed study dated 04/01. BREAST PARENCHYMAL COMPOSITION: Dense: The breasts are heterogeneously dense, which may obscure small masses FINDINGS: There is no evidence of suspicious mass, calcification, or architectural distortion to sugg est malignancy in either breast. There has been no suspicious interval change. IMPRESSION: 1. No mammographic evidence of malignancy. 2. Recommend routine screening mammography in one year. BI-RADS Category 1: Negative Reviewed, dictated and finalized at location B.
== END 2023-09-23 11:15 ==
PROVIDERS: PCP Family Medicine; Visit Provider Family Medicine
DX: Z12.31 Encounter for screening mammogram for malignant neoplasm of breast (principal)
CPT/HCPCS: 77063; 77067

== ENCOUNTER 2023-11-17 07:06 | Day surgery (SDC) | payer MEDICARE, OTHER, SELFPAY ==
[2023-10-15 09:23] VITALS: BMI 33.0
--- NOTE | 2023-11-16 15:33 | WPDANESEPPF ---
Anes - Initial Pre Proc Eval Procedure: Operation Date: 11/17/23 09:00 Proposed Procedures p Diagnostic Colonoscopy - Robbie Goel MD Date/Time: 11/16/23 15:33 Surgeon: Robbie Goel MD Pre Op Diagnosis: Family HX of Colon Cancer Patient Data Age: 68 Gender: F Height: 1.68 m Weight: 93.032 kg Allergies Allergy/AdvReac Type Severity Reaction Status Date / Time Penicillins Allergy Mild Rash Verified 11/17/23 07:37 Home Medications Medication Instructions Recorded Confirmed Type multivitamin (Multiple Vitamins 1 tablet PO DAILY 02/17/19 11/17/23 History tablet) coenzyme Q10 75 mg capsule (Ultra 75 mg PO QPM 11/07/19 11/17/23 History CoQ10) diphenhydramine HCl 25 mg capsule 25 mg PO .PRN PRN Allergy Symptoms 10/05/23 11/17/23 History (Benadryl) simvastatin 40 mg tablet 20 mg PO DAILY 10/05/23 11/17/23 History mecobalamin (vitamin B12) 1,000 1,000 mcg PO DAILY 10/25/23 11/17/23 History mcg lozenges citalopram 10 mg tablet 10 mg PO DIRECTED #90 tabs 11/04/23 11/17/23 Rx Patient hx anesthesia problems: none Family hx anesthesia problems: none Results Review: All pre-operative results and documents have been reviewed as part of the pre-operative evaluation. [facility] Past Medical History Medical History (Updated 11/17/23 @ 07:49 by Robbie Goel MD) Anxiety Arthritis Depression Dizziness Headache Pure hypercholesterolemia Seasonal allergies Vision abnormalities Surgical History Surgical History (Updated 10/25/23 @ 13:33 by Li Garcia [facility]) H/O tubal ligation History of endometrial ablation History of eye surgery History of right knee joint replacement Hx of appendectomy Total knee replacement status Family History Family History Sibling Family history of scoliosis Father Patient's father is Other Arthritis Heart disease Kidney disease Social History Social History Smoking status: Never smoker Second hand tobacco smoke exposure: No Alcohol intake: never Substance use: never Substance use type: does not use Lack of Transportation: No Lack of Food: Never True Current Housing: I Have Housing Concerned About Future Housing: No Difficulty Paying Gas/Electric Bills: No Difficulty Paying for Meds: No Currently Unemployed: No Education: High School Diploma/GED Difficulty w/ Childcare or Family Care: No Living arrangements: with family Gender identity (if verbalized by the patient): Female Spiritual care concerns: No Anes - Eval Final PreProcedure Day of Procedure 11/16/23 15:33 Patient weight: obese Heart: regular rate and rhythm Lungs: clear to auscultation Airway: Mallampati scale class II Neurological: alert and oriented Last oral intake: >/= 8 hours ASA classification: II Emergent: no Anesthetic plan: proceed Anesthesia type and monitoring: general GIVS and standard monitoring Results Review: All pre-operative results and documents have been reviewed as part of the pre-operative evaluation. Informed Consent: The patient's anesthetic plan and its attendant risks and benefits were discussed with the patient/family/POA. Questions were solicited and answers provided to the satisfaction of the patient/family/POA.
[2023-11-17] MEDS: LACTATED RINGERS 1,000 ML 150 ML IV CONT (07:39)
[2023-11-17 07:46] VITALS: BP 138/78; PULSE 90; RESP 15; TEMP 37.1; O2SAT 99
--- NOTE | 2023-11-17 07:47 | PM.HPGS ---
History of Present Illness History of Present Illness Consent: Risks, benefits, and alternatives have been discussed and questions answered. Patient agrees to proceed with procedure. Chief complaint: Family HX of Colon Cancer Narrative: Yvonne Kumar is a 68 year old female presents for colonoscopy. Patient's current weight appetite and bowel movements are normal. She denies abdominal pain. Patient has had no bleeding. Family history is significant that her father had colon cancer. Patient's most recent colonoscopy in 2019 was unremarkable. Review of Systems Review of Systems: All systems reviewed & are unremarkable except as noted in HPI and below PMFSH Past Medical History Medical History (Updated 11/17/23 @ 07:49 by Robbie Goel MD) Anxiety Arthritis Depression Dizziness Headache Pure hypercholesterolemia Seasonal allergies Vision abnormalities Surgical History Surgical History (Updated 10/25/23 @ 13:33 by Li Garcia [facility]) H/O tubal ligation History of endometrial ablation History of eye surgery History of right knee joint replacement Hx of appendectomy Total knee replacement status Family History Family History Sibling Family history of scoliosis Father Patient's father is Other Arthritis Heart disease Kidney disease Social History Social History Smoking status: Never smoker Second hand tobacco smoke exposure: No Alcohol intake: never Substance use: never Substance use type: does not use Lack of Transportation: No Lack of Food: Never True Current Housing: I Have Housing Concerned About Future Housing: No Difficulty Paying Gas/Electric Bills: No Difficulty Paying for Meds: No Currently Unemployed: No Education: High School Diploma/GED Difficulty w/ Childcare or Family Care: No Living arrangements: with family Gender identity (if verbalized by the patient): Female Spiritual care concerns: No Meds Home Medications and Allergies Home Medications Medication Instructions Recorded Confirmed Type multivitamin (Multiple Vitamins 1 tablet PO DAILY 02/17/19 11/17/23 History tablet) coenzyme Q10 75 mg capsule (Ultra 75 mg PO QPM 11/07/19 11/17/23 History CoQ10) diphenhydramine HCl 25 mg capsule 25 mg PO .PRN PRN Allergy Symptoms 10/05/23 11/17/23 History (Benadryl) simvastatin 40 mg tablet 20 mg PO DAILY 10/05/23 11/17/23 History mecobalamin (vitamin B12) 1,000 1,000 mcg PO DAILY 10/25/23 11/17/23 History mcg lozenges citalopram 10 mg tablet 10 mg PO DIRECTED #90 tabs 11/04/23 11/17/23 Rx Allergies Allergy/AdvReac Type Severity Reaction Status Date / Time Penicillins Allergy Mild Rash Verified 11/17/23 07:37 Vital Signs Vital Signs - 24 hr 11/17/23 07:46 Temperature 98.7 F Pulse Rate 90 Respiratory Rate 15 Blood Pressure 138/78 Pulse Oximetry 99 Oxygen Delivery Room Air Exam Narrative: Physical exam reveals patient to be alert. Vital signs stable. HEENT exam is unremarkable. Patient is anicteric. Lungs are clear to auscultation and percussion. Heart is without murmur or extra sounds. Abdomen bowel sounds are present soft nontender with no organomegaly. Digital external rectal exam is normal. Assessment and Plan Assessment and plan (1) Family history of colon cancer in father: Code(s): Z80.0 - Family history of malignant neoplasm of digestive organs Status: Acute Assessment and Plan: Patient's father had colon cancer. Plan for surveillance colonoscopy at 5 year intervals.
[2023-11-17 09:07] VITALS: BP 120/69; PULSE 80; RESP 18; O2SAT 99
[2023-11-17 09:17] VITALS: BP 126/71; PULSE 90; RESP 18; O2SAT 98
--- NOTE | 2023-11-17 09:21 | WPDANESPN ---
Anes - Prog Note Post-Op Date/Time: 11/17/23 09:21 Cardiovascular status: normal Respiratory status: normal Airway patency: baseline Mental status: baseline Post-Op hydration status: normal Vital Signs: Last Vital Signs Temp 37.1 C 11/17/23 07:46 Pulse 90 11/17/23 09:17 Resp 18 11/17/23 09:17 BP 126/71 11/17/23 09:17 Pulse Ox 98 11/17/23 09:17 O2 Del Method Room Air 11/17/23 09:17 Pain Score (VAS): 0 I/O: Intake & Output 11/16/23 11/17/23 11/17/23 23:59 07:59 15:59 Intake Total 500 Balance 500 Post-procedural complaints: none Patient Feedback: Patient satisfied with anesthetic care. Other Findings: Patient vital signs back to baseline. Patient denies nausea and vomiting. Patient's pain under control. Patient OK for discharge.
[2023-11-17 09:27] VITALS: BP 105/69; PULSE 81; RESP 16; O2SAT 99
== END 2023-11-17 09:41 | disposition home or self-care (01) ==
PROVIDERS: PCP Family Medicine; Visit Provider Internal Medicine Gastroenterology
PROC: 0DJD8ZZ Inspection of Lower Intestinal Tract, Via Natural or Artificial Opening Endoscopic (ICD-10-PCS; CPT 45378; principal; 2023-11-17 09:00)
DX: Z80.0 Family history of malignant neoplasm of digestive organs (principal); D12.5 Benign neoplasm of sigmoid colon; K57.30 Diverticulosis of large intestine without perforation or abscess without bleeding; K64.8 Other hemorrhoids
CPT/HCPCS: 45385

== ENCOUNTER 2023-11-17 11:04 | Outpatient (NON) | payer MEDICARE, SELFPAY | END 2023-11-17 11:05 | disposition home or self-care (01) | LOC: ANHLAB 11-18 11:09 | PROVIDERS: PCP Family Medicine; Visit Provider Internal Medicine Gastroenterology | DX: D12.5 Benign neoplasm of sigmoid colon (principal); Z12.11 Encounter for screening for malignant neoplasm of colon | CPT/HCPCS: 88305 ==

== ENCOUNTER 2024-09-25 11:23 | Outpatient (CLI) | payer MEDICARE, SELFPAY ==
--- NOTE | ~2024-09-25 | MM_ITS ---
EXAMINATION: MM screening [facility] BI w brandy HISTORY: Screening mammogram TECHNIQUE: Craniocaudal and mediolateral oblique 3-D tomosynthesis images were obtained and synthetic 2-D images were generated. CAD analysis was submitted and interpreted. COMPARISON: 09/23/2023, 08/24/2022, 08/22/2021 BREAST PARENCHYMAL COMPOSITION:Not Dense. There are scattered areas of fibroglandular density. FINDINGS: No suspicious mass, calcification, or architectural distortion are identified in either sari ast to suggest malignancy. There has been no suspicious interval change. IMPRESSION: No mammographic evidence of malignancy. Recommend routine screening mammography in one year. BI-RADS Category 1: Negative Reviewed, dictated and finalized at location .
== END 2024-09-25 11:24 | disposition home or self-care (01) ==
LOC: MICIMG 11:24
PROVIDERS: PCP Family Medicine; Visit Provider Family Medicine
DX: Z12.31 Encounter for screening mammogram for malignant neoplasm of breast (principal)
CPT/HCPCS: 77063; 77067

== ENCOUNTER 2024-11-01 10:23 | Outpatient (CLI) | payer MEDICARE, SELFPAY ==
--- OUTSIDE RECORDS SUMMARY | 2000-04-25 19:00 | XMS_ITS | Continuity of Care Document ---
Author Organization [facility] [place] [address] [place] [address] utive [facility] [address] [place] [address] Phone Care Team Providers Care Dough Molder Hand Name Role Phone [facility] Unavailable Unavail able Julio César Wild Unavailable Unavailable Advance Directives Directive Yes / No Effective Date File Name No Information Encounters Encounter Description Practice Location Reason(s) For Visit Diagnoses Date Provider Providers Copied on Encounter [facility], [address] [facility] [address], [place], [place], [id number], [place] tel:[phone] [facility] No Information [facility] [address] [facility], [address], [place], [place], [id number] , [place]. tel:[phone] Referring Provider: Robbie Atkins, [address] [place] [address] [address], [place], [address]. tel:[phone] sulting Provider: Julio César Wild, [address] [place] [address], [place], [address]. tel:[phone] Family History Family Member Type Diagnosis Age At Onset No Information Payers Payer name Insurance type Covered democrat ID Authoriza tion(s) No Information Social History Type Description Quantity Date Captured Comments Sex Female Smoking Status No Information Chief Complaint And Reason For Visit No Information Reason For Referral Reason For Referral No Information History Of Present Illness Encounter Date Complaint History Of Prese nt Illness No Information Functional Status Date Functional Assessmen t No Information Instructions Date Instruction Additional Infor mation No Information Assessments Type Assessment Date No Information Patient Care Teams Name Effective Dates (start - stop) Status Members No Information
--- OUTSIDE RECORDS SUMMARY | 2024-11-01 11:40 | XMS_ITS | Clinical Summary ---
Author Organization [facility] [address] [place] [id number] Care Team Providers Care Olive Packer Name Role Phone Sridhar Johnson MD Primary Care Provider [phone] Allergies Active Allergy Reactions Criticality Noted Date Comments Codeine Other (See comments) Reaction: OTHER ALLERGIC REACTION, Prochlorperazine Rash Medium Reaction: RASH Medications HYDROcodone-jen taminophen (NORCO) 7.5-325 mg per tablet take 1 tablet by oral route every 6 hours as needed for pain 60 0 6 Active Additional Information Patient not taking.Reported on 04/06/2019 diclofenac sodium (VOLTAREN) 1 % gel apply (2G) by topical route 4 times every day to the affected area(s) 0 0 6 Active Additional Information Patient not taking.Reported on 04/06/2019 [id number]- [id number] (KRILL OIL) 1,531-966-85-50 mg capsule 0 0 6 Active Additional Information Patient not taking.Reported on 04/06/2019 loratadine (CLARITIN) 10 mg tablet take 1 tablet by oral route every day 0 0 6 Active Additional Information Patient not taking.Reported on 04/06/2019 aspirin (ASPIRIN LOW DOSE) 81 mg tablet take 1 tablet by oral route every day 0 0 6 Active citalopram (CeleXA) 10 mg tablet take 1 tablet by oral route every day 0 0 6 Active atorvastatin (LIPITOR) 10 mg tablet TK 1 T PO D 9 Active ezetimibe (ZETIA) 10 mg tablet 0 Active Active Problems Problem Noted Date Diagnosed Date Varicose veins of lower extremity 11/18/2015 Overview (05/15/2016): Varicose veins of both lower extremities Surgical History Surgery Date Site/Laterality Comments TUBAL LIGATION tubaligation APPENDECTOMY Appendectomy Medical History Medical History Date Comments Hypercholesterolemia High choles terol; Comments: CCB 05/28/2015 - Family History Medical History Relation Name Comments Hypertension Father Hypertension; Stroke Father Stroke; Heart failure Mother Congestive hea rt failure; Relation Name Status Comments Father Mother Social History Tobacco Use Types Packs/Day Years Used Date Smoking Tobacco: Never Comments Unknown Sex and Gender Information Value Date Recorded Sex Assigned at Not on file Legal Sex Female 4:27 AM WELLNESS NURSE Gender Identity Not on file Sexual Orientation Not on file Obstetrics History Last Filed Vital Signs Vital Sign Reading Time Taken Comments Blood Pressure 130/70 07/20/2016 9:20 AM CDT Pulse 88 07/13/2015 11:50 AM CDT Temperature - - Respiratory Rate - - Oxygen Saturation - - Inhaled Oxygen Concentration - - Weight 87.1 kg (192 lb) 04/06/2019 3:05 PM WELLNESS NURSE Height 165.1 cm (5' 5) 04/06/2019 3:05 PM WELLNESS NURSE Body Mass Index 31.95 04/06/2019 3:05 PM WELLNESS NURSE Plan of Treatment Not on file Insurance MEDICARE [facility] [place] [address] Care Teams Olive Packer Relationship Specialty Start Date End Date Sridhar Johnson MD [address] [facility] [address] [place] [address] PCP - General Internal Medicine 04/04/19
[2024-11-21 15:43] VITALS: BMI 32.5
--- NOTE | 2024-11-21 15:43 | WPDHOMESLEEP ---
Sleep Study - Home Unattended Date of Study: 11/01/24 Ordering Provider: Gabriel Lobo MD Interpreting Provider: Maria Elena Yi, DO Home Sleep Study Type: Watch PAT Height: 1.68 m Weight: 91.626 kg Body Mass Index: 32.5 Neck Circumference (inches): 15.5 [place]: 8 Reason for Sleep Study snoring, daytime hypersomnia Sleep History The patient is a 69-year-old female that had a sleep study ordered by her primary care physician for evaluation of sleep apnea. The patient admits to snoring loudly, excessive daytime sleepiness and trouble maintaining sleep. She denies interruptions in breathing while asleep. She denies choking or gasping at night. She denies having trouble breathing on her back. She does have morning headaches. She does have a dry or sore mouth/ throat in the morning. She denies nocturnal heartburn. She urinates twice throughout the night. She denies having difficulty falling asleep. She denies having difficulty returning to sleep if she wakes up throughout the night. She denies any hypnotic or sedative use. She denies feeling anxious about sleep. She does feel tired or sleepy during the day. She does feel tired in the morning. She does have the urge to fall asleep during the day. She denies feeling drowsy while driving. She denies sleep paralysis, cataplexy and hypnagogic/ hypnopompic hallucinations. She does clench or grind her teeth. She denies kicking or jerking her legs excessively. She does have a restless feeling in her legs it does cause an urge to move her legs. It gets better with activity and worse with rest. It is predominantly present in the evening. It does not cause a disturbance in her sleep. She goes to bed at 10:00 p.m. on work days and at 11:00 p.m. on her days off. It takes her 75 minutes to fall asleep on work days and 15 minutes on her days off. She gets 8 hours of sleep on work days and 7 hours and 45 minutes asleep on her days off. Her sleep is not at all restorative on days off. She denies taking any planned naps. She denies dream enactment behavior. She denies sleep walking. She consumes 1-2 cups of caffeinated beverage per day. She denies tobacco and alcohol use. She exercises 3-4 nights per week. [facility] Past Medical History Medical History Anxiety Seasonal allergies Arthritis Depression Vision abnormalities Dizziness Headache Pure hypercholesterolemia Surgical History Surgical History H/O tubal ligation History of endometrial ablation Hx of appendectomy History of eye surgery Total knee replacement status History of right knee joint replacement Family History Family History Sibling Family history of scoliosis Father Patient's father is Other Arthritis Heart disease Kidney disease Social History Social History Smoking status: Never smoker Second hand tobacco smoke exposure: No Alcohol intake: never Substance use: never Substance use type: does not use Lack of Transportation: No Lack of Food: Never True Current Housing: I Have Housing Concerned About Future Housing: No Difficulty Paying Gas/Electric Bills: No Difficulty Paying for Meds: No Currently Unemployed: No Education: High School Diploma/GED Difficulty w/ Childcare or Family Care: No Living arrangements: with family Gender identity (if verbalized by the patient): Female Spiritual care concerns: No Medications Home Medications ?Medication ?Instructions ?Recorded ?Confirmed ?Type multivitamin (Multiple Vitamins 1 tablet PO DAILY 02/17/19 11/17/23 History tablet) coenzyme Q10 75 mg capsule (Ultra 75 mg PO QPM 11/07/19 11/17/23 History CoQ10) diphenhydramine HCl 25 mg capsule 25 mg PO .PRN PRN Allergy Symptoms 10/05/23 11/17/23 History (Benadryl) mecobalamin (vitamin B12) 1,000 1,000 mcg PO DAILY 10/25/23 11/17/23 History mcg lozenges citalopram 10 mg tablet 10 mg PO DIRECTED #90 tabs 05/30/24 Rx aspirin 81 mg tablet,delayed 81 mg PO DAILY 10/17/24 History release (Adult Aspirin Regimen) rosuvastatin 20 mg tablet 20 mg PO DAILY #90 tabs 10/17/24 10/17/24 Rx Sleep Procedure The sleep study was completed using [employer] a technically adequate device with seven channels: peripheral arterial tone, actigraphy, body position, snore, respiratory movement, pulse oximetry, sleep staging, and heart rate. Prior to using the device, the patient received verbal and written instructions for its application and was provided with the help desk phone number for additional telephonic instruction with 24-hour availability of qualified personnel to answer questions. The study was scored using CMS guidelines. Sleep Architecture The total recording time is 7 hrs, 34 min. The total sleep time is 6 hrs, 19 min. Sleep latency is 6 minutes. REM latency is 37 minutes. The patient had 17 episodes of waking. Sleep architecture shows 15.3% deep sleep, 61.6% light sleep, and (as % Total Sleep Time) showed NREM (Light 61.6%; Deep 15.3%), and a 23.1% stage REM. The patient spent 37.0% of total sleep time in the supine position. Sleep efficiency was 83.48. Respiratory Analysis The overall AHI (pAHI 4%:) is 30.8. The overall AHI (pAHI 3%:) is 40.5. The central AHI is 1.5. The AHI was 41.4 in NREM and 37.7 in REM sleep. The AHI was 58.4 in Supine and 30.4 in Non-supine sleep. Percent of Edilberto Mckeon respirations is 0.0. Oximetry Data The oxygen desaturation index (TANVI 4%:) is 22.4. The mean saturation is 92%, and the lowest saturation is 86%. Time spent with saturation < 88% is 0.6 minutes. Snoring Profile Snoring average intensity is 49 dB. The patient snored above 45 decibels for 228.5 minutes, 60.1% of sleep time. Cardiac Profile The average pulse rate is 78 beats per minutes. The lowest pulse rate is 57 bpm. The highest pulse rate reported is 103 bpm. Atrial fibrillation was not detected. Premature beats occur 0.1 per minute. Assessment and Plan Assessment and Plan (1) KAYLIN (obstructive sleep apnea): Code(s): G47.33 - Obstructive sleep apnea (adult) (pediatric) Status: Acute Assessment and Plan: The patient had an overall AHI of 30.8 with desaturation down to 86%. This is consistent with severe sleep apnea. I recommend that the patient have a CPAP Titration with the use of a hypnotic to ensure we obtain enough sleep data and find an optimal pressure setting. The patient's sleep history is somewhat suggestive of Restless Leg Syndrome. I recommend that the patient have a serum ferritin drawn for evaluation of iron deficiency anemia. If the patient has a serum ferritin less than 75 ng/mL, I recommend starting a daily iron supplement and a Vitamin C supplement for better absorption. If the serum ferritin is greater than 75 ng/mL, I recommend starting a dopamine agonist and titrating the dose until symptoms resolve. There are nonpharmacological methods to treat limb movements including daily exercise, stretching calf muscles before bed, avoiding excessive amounts of caffeine and alcohol, vitamin B supplementation, magnesium lotion massaged into legs before bed, and use of a weighted blanket. Data The data obtained during this sleep study is adequate for interpretation. Certification This sleep study has been reviewed by a board certified sleep medicine physician.
== END 2024-11-02 08:58 | disposition home or self-care (01) ==
PROVIDERS: PCP Family Medicine; Visit Provider Family Medicine
DX: G47.33 Obstructive sleep apnea (adult) (pediatric) (principal); E66.9 Obesity, unspecified; R53.83 Other fatigue; R51.9 Headache, unspecified; D75.1 Secondary polycythemia
CPT/HCPCS: 95800